=== PATIENT | female | born 1990 | race American Indian/Alaskan Native ===

== ENCOUNTER → 2017-09-18 | Outpatient (CLI) | payer MEDICAID | LOC: SLR 11:00 | PROVIDERS: ATTEND Otolaryngology | DX: G47.30 Sleep apnea, unspecified (principal) | CPT/HCPCS: 95810 ==

== ENCOUNTER → 2017-10-08 | Outpatient (CLI) | payer MEDICAID | LOC: SLR 11:00 | PROVIDERS: ATTEND Otolaryngology | DX: G47.33 Obstructive sleep apnea (adult) (pediatric) (principal) | CPT/HCPCS: 95811 ==

== ENCOUNTER 2018-09-30 09:23 | Emergency (ER) | payer MEDICAID, OTHER ==
[2018-09-30 09:31] VITALS: BP 141/89
[2018-09-30] MEDS ORDERED: DECADRON IM ONE (10:05)
--- NOTE | 2018-09-30 10:18 | Emergency Department Report ---
- General Chief Complaint: Upper Respiratory Infection Stated Complaint: SORE THROAT/ABD PAIN Time Seen by Provider: 09/30/18 10:00 Source: patient Mode of arrival: Ambulatory Limitations: No Limitations - History of Present Illness Initial Comments: Patient is a 28-year-old [place] female who is presenting with cough cold congestion type symptoms for the past several days woke up this morning with difficulty swallowing. Patient states cough is nonproductive has been present for approximately 4 days. Patient denies any fevers chills at this time. Patient states that she now has some difficulty swallowing and feels as though something is stuck in the back of her throat. There is mild pain with swallowing her saliva but she is able to swallow and keep down liquids. Patient states the pain as a 6 out of 10 in severity. - Related Data Previous Rx's Medication Instructions Recorded Last Taken Type Meloxicam 15 mg PO DAILY #7 tablet 06/18/18 Unknown Rx Methocarbamol [Robaxin TAB] 750 mg PO Q8H PRN #14 tablet 06/18/18 Unknown Rx ALBUTEROL Inhaler (OR & NICU) 2 puff IH QID PRN #1 inhalation 09/30/18 Unknown Rx [ProAir HFA Inhaler] Clindamycin [Clindamycin CAP] 300 mg PO Q8H 7 Days cap 09/30/18 Unknown Rx Allergies Allergy/AdvReac Type Severity Reaction Status Date / Time No Known Allergies Allergy Verified 09/30/18 09:26 ED Review of Systems ROS: Stated complaint: SORE THROAT/ABD PAIN Other details as noted in HPI Comment: All other systems reviewed and negative ED Past Medical Hx - Past Medical History Hx Hypertension: Yes Hx Diabetes: Yes (borderline) Hx Psychiatric Treatment: Yes (depression, bipolar) Additional medical history: morbid obesity, abnormal uterine bleeding - Surgical History Past Surgical History?: No - Social History Smoking Status: Never Smoker Substance Use Type: None - Medications Home Medications: Home Medications Medication Instructions Recorded Confirmed Last Taken Type Meloxicam 15 mg PO DAILY #7 tablet 06/18/18 Unknown Rx Methocarbamol [Robaxin TAB] 750 mg PO Q8H PRN #14 tablet 06/18/18 Unknown Rx ALBUTEROL Inhaler (OR & NICU) 2 puff IH QID PRN #1 inhalation 09/30/18 Unknown Rx [ProAir HFA Inhaler] Clindamycin [Clindamycin CAP] 300 mg PO Q8H 7 Days cap 09/30/18 Unknown Rx ED Physical Exam - General Limitations: No Limitations General appearance: alert, in no apparent distress - Head Head exam: Present: atraumatic, normocephalic - Eye Eye exam: Present: normal appearance - ENT ENT exam: Present: mucous membranes moist. Absent: normal orophraynx (patient's uvula is midline however there is evidence of some mild erythema and edema to the uvula) - Neck Neck exam: Present: normal inspection - Respiratory Respiratory exam: Present: normal lung sounds bilaterally. Absent: respiratory distress, wheezes, rales, rhonchi - Cardiovascular Cardiovascular Exam: Present: regular rate, normal rhythm. Absent: systolic murmur, diastolic murmur, rubs, gallop - GI/Abdominal GI/Abdominal exam: Present: soft, normal bowel sounds - Extremities Exam Extremities exam: Present: normal inspection - Back Exam Back exam: Present: normal inspection - Neurological Exam Neurological exam: Present: alert, oriented X3 - Psychiatric Psychiatric exam: Present: normal affect, normal mood - Skin Skin exam: Present: warm, dry, intact, normal color. Absent: rash ED Course Vital Signs 09/30/18 09:30 Temperature 98.7 F Pulse Rate 87 Respiratory 20 Rate Blood Pressure 141/89 O2 Sat by Pulse 99 Oximetry ED Medical Decision Making - Medical Decision Making Patient likely with a acute bronchitis with uvulitis as well. Patient be given minutes symptomatic relief and will be discharged home. Critical care attestation.: If time is entered above; I have spent that time in minutes in the direct care of this critically ill patient, excluding procedure time. ED Disposition Clinical Impression: Uvulitis Acute bronchitis Qualifiers: Bronchitis organism: unspecified organism Qualified Code(s): J20.9 - Acute bronchitis, unspecified Disposition: DC-01 TO HOME OR SELFCARE Is pt being admited?: No Does the pt Need Aspirin: No Condition: Stable Instructions: Acute Bronchitis (ED), Uvulitis (ED) Referrals: JULIA DUTTA MD [Primary Care Provider] - 3-5 Days Time of Disposition: 10:18
[2018-09-30 10:37] LABS: Bacteria,Urine 1+ /HPF (Negative); Bilirubin,Urine NEG (Negative); Blood,Urine LG (Negative); Color,Urine Red (Yellow); RBC,Urine > 182.0 /HPF (0.0-6.0); Urobilinogen,Urine < 2.0 mg/dL (<2.0)
[2018-09-30 10:38] LABS: HCG Qualitative,Urine Negative (Negative)
== END 2018-09-30 10:36 | disposition home or self-care (01) ==
LOC: ED 09:23
DX: J20.9 Acute bronchitis, unspecified (principal); K12.2 Cellulitis and abscess of mouth; I10 Essential (primary) hypertension; E11.9 Type 2 diabetes mellitus without complications; F31.9 Bipolar disorder, unspecified; E66.01 Morbid (severe) obesity due to excess calories; Z68.42 Body mass index [BMI] 45.0-49.9, adult
CPT/HCPCS: 81001; 81025; 96372; 99283; J1100

== ENCOUNTER 2018-11-25 07:40 | Day surgery (SDC) | payer MEDICAID ==
[~2018-11-25 07:40] MED LIST: NACL 0.9% 1000 ML 1,000 ML IV SCH
[2018-11-25] MEDS ORDERED: WATER FOR IRRIG STERILE IR ONE ×2 (07:41→10:06)
--- NOTE | 2018-11-25 09:49 | Anesthesia Day of Surgery ---
Anesthesia Day of Surgery - Day of Surgery Patient Examined: Yes Patient H&P Reviewed: Yes Patient is NPO: Yes Beta Blockers: No
--- NOTE | 2018-11-25 09:50 | Anesthesia Consultation ---
Anesthesia Consult and Med Hx Date of service: 11/25/18 - Airway Anesthetic Teeth Evaluation: Good ROM Head & Neck: Adequate Mental/Hyoid Distance: Adequate Mallampati Class: Class III Intubation Access Assessment: Good - Pulmonary Exam CTA: Yes - Cardiac Exam Cardiac Exam: No Murmur - Pre-Operative Health Status ASA Pre-Surgery Classification: ASA3 Proposed Anesthetic Plan: MAC - Pulmonary Hx Sleep Apnea: Yes - Cardiovascular System Hx Hypertension: Yes - Other Systems Hx Obesity: Yes
[2018-11-25] MEDS ORDERED: VERSED ONE (09:55)
[2018-11-25] MEDS ORDERED: DIPRIVAN 10 MG/ML IV ONE (09:55)
[2018-11-25 10:37] VITALS: BP 120/60
--- NOTE | 2018-11-25 13:28 | Operative Report ---
PREOPERATIVE DIAGNOSIS: Morbid obesity. POSTOPERATIVE DIAGNOSIS: Duodenitis. PROCEDURE: Esophagogastroduodenoscopy. ANESTHESIA: MAC. COMPLICATIONS: None. BLEEDING: None. SPECIMENS: None. INDICATIONS: The patient is a 28-year-old female with history of morbid obesity. She is here for preoperative EGD. Informed consent was obtained. DESCRIPTION OF PROCEDURE: The patient was brought to the GI suite where she was placed in the left lateral decubitus position and underwent MAC anesthesia. A bite block was placed and a timeout was called. A standard adult gastroscope was inserted into the oropharynx, down the esophagus, into the stomach. On retroflexion view, she was not noted to have any hiatal hernias present. On intubation of the pylorus into the first portion of the duodenum, I noted a minor amount of duodenitis. No other findings. The air is desufflated. The scope was removed. The patient tolerated the procedure without any immediate complications and was transferred to the PACU in stable condition. JOB# [id number] AP/LOLITA
== END 2018-11-25 07:41 | disposition home or self-care (01) ==
LOC: GIO 07:40
PROVIDERS: ATTEND Specialist
DX: K29.80 Duodenitis without bleeding (principal); K30 Functional dyspepsia; E11.9 Type 2 diabetes mellitus without complications; E66.01 Morbid (severe) obesity due to excess calories; K21.9 Gastro-esophageal reflux disease without esophagitis; M19.90 Unspecified osteoarthritis, unspecified site; F31.9 Bipolar disorder, unspecified; E78.00 Pure hypercholesterolemia, unspecified; I10 Essential (primary) hypertension; G47.30 Sleep apnea, unspecified; Z68.43 Body mass index [BMI] 50.0-59.9, adult; Z98.84 Bariatric surgery status; Z79.899 Other long term (current) drug therapy
CPT/HCPCS: 43235; 81025; 82962; J2250; J2704; J7030

== ENCOUNTER 2019-02-03 07:02 | Inpatient (IN) | payer MEDICAID, OTHER ==
--- NOTE | 2019-02-02 15:22 | Anesthesia Consultation ---
Anesthesia Consult and Med Hx Date of service: 02/02/19 - Airway Anesthetic Teeth Evaluation: Good ROM Head & Neck: Adequate Mental/Hyoid Distance: Adequate Mallampati Class: Class II Intubation Access Assessment: Probably Good - Pulmonary Exam CTA: Yes - Cardiac Exam Cardiac Exam: RRR - Pre-Operative Health Status ASA Pre-Surgery Classification: ASA3 Proposed Anesthetic Plan: General - Pulmonary Hx Smoking: No Hx Asthma: Yes (last inhaler use 2wks ago) Hx Respiratory Symptoms: No Hx Sleep Apnea: Yes (compliant with CPAP) - Cardiovascular System Hx Hypertension: Yes Hx Heart Attack/AMI: No Hx Percutaneous Transluminal Coronary Angioplasty (PTCA): No Hx Cardia Arrhythmia: No - Central Nervous System Hx Seizures: No CVA: No Hx Psychiatric Problems: Yes - Gastrointestinal Hx Gastroesophageal Reflux Disease: Yes (well controlled) - Endocrine Hx Renal Disease: No Hx Liver Disease: No Hx Insulin Dependent Diabetes: No Hx Non-Insulin Dependent Diabetes: No Hx Thyroid Disease: No - Hematic Hx Anemia: Yes - Other Systems Hx Cancer: No Hx Obesity: Yes (BMI 49) - Additional Comments Anesthesia Medical History Comments: No prior GA. No FHx anesthetic complications. Completed cardiac and medical eval prior to surgery. Patient states normal results. Documents requested.
[~2019-02-03 07:02] MED LIST changes: +ANCEF/STERILE WATER 2 GM/20 ML 2 GM/20 ML SYRINGE IV SCH; +FLAGYL 500 MG/100 ML 500 MG/100 ML BAG IV NR; -NACL 0.9% 1000 ML 1,000 ML IV SCH
--- NOTE | 2019-02-03 09:01 | Anesthesia Day of Surgery ---
Anesthesia Day of Surgery - Day of Surgery Patient Examined: Yes Patient H&P Reviewed: Yes Patient is NPO: Yes Cardiac Clearance: Yes
[2019-02-03] MEDS: LACTATED RINGERS 1,000 ML IV SCH ×2 (09:20→23:52)
[2019-02-03] MEDS: VERSED IV NR ×2 (09:23→09:58)
[2019-02-03] MEDS ORDERED: APRESOLINE IV PRN (09:40)
[2019-02-03] MEDS ORDERED: NORCO PO PRN (09:40)
[2019-02-03] MEDS ORDERED: TRANSDERM-SCOP TD SCH (10:00)
[2019-02-03] MEDS ORDERED: LOVENOX SUB-Q NR (10:00)
[2019-02-03] MEDS ORDERED: TORADOL IV SCH (10:00)
[2019-02-03] MEDS ORDERED: LACTATED RINGERS 1,000 ML IV SCH (10:00)
[2019-02-03] MEDS ORDERED: XYLOCAINE 1% 20 mL ONE (10:48)
[2019-02-03] MEDS ORDERED: MARCAINE-EPI 0.5%-1:200,000 INFILTRATI ONE ×2 (10:48→11:29)
[2019-02-03] MEDS ORDERED: BRIDION IV ONE (10:49)
[2019-02-03] MEDS ORDERED: XYLOCAINE 1% 20 mL INFILTRATI ONE (11:29)
[2019-02-03] MEDS ORDERED: NACL 0.9% IR ONE ×2 (11:29→11:33)
[2019-02-03] MEDS ORDERED: DIPRIVAN 10 MG/ML IV ONE (11:30)
[2019-02-03] MEDS ORDERED: ZEMURON IV ONE (11:30)
[2019-02-03] MEDS ORDERED: DECADRON ONE (11:30)
[2019-02-03] MEDS ORDERED: SUBLIMAZE ONE (11:30)
[2019-02-03] MEDS ORDERED: XYLOCAINE MPF 2% ONE (11:30)
[2019-02-03] MEDS ORDERED: DILAUDID ONE (11:30)
[2019-02-03] MEDS ORDERED: ZOFRAN ONE (11:30)
[2019-02-03] MEDS: SUBLIMAZE IV PRN ×2 (12:50→13:02)
[2019-02-03] MEDS: MYLICON PO PRN ×2 (13:01→20:34)
[2019-02-03] MEDS: REGLAN IV PRN (13:06)
[2019-02-03] MEDS: TORADOL IV SCH ×2 (13:35→20:47)
[2019-02-03] MEDS ORDERED: HumuLIN R SUB-Q ONE (13:57)
--- NOTE | 2019-02-03 15:01 | Post Anesthesia Evaluation ---
- Post Anesthesia Evaluation Patient Participated: Yes Airway Patent: Yes Stable Respiratory Function: Yes Nausea/Vomiting: No Temp > 96.8F: Yes Pain Manageable: Yes Adequeate Hydration: Yes Anesthesia Complications: No
[2019-02-03] MEDS: ZOFRAN IV PRN (16:05)
[2019-02-03] MEDS: DILAUDID IV PRN ×2 (16:05→20:35)
--- NOTE | 2019-02-03 17:47 | XRay Report ---
CHEST 1 VIEW 02/03/2019 5:27 PM INDICATION / CLINICAL INFORMATION: Chest pain. COMPARISON: None available. FINDINGS: SUPPORT DEVICES: None. HEART / MEDIASTINUM: No significant abnormality. LUNGS / PLEURA: Suboptimal inspiration resulting in low lung volumes. Mild bibasilar atelectasis. No pneumothorax. ADDITIONAL FINDINGS: No significant additional findings. IMPRESSION: 1. Mild bibasilar atelectasis. Signer Name: Espinoza Martinez MD Signed: 02/03/2019 5:43 PM Workstation Name: [id number]
[2019-02-04] MEDS: DILAUDID IV PRN ×3 (00:01→15:35)
[2019-02-04] MEDS: REGLAN IV PRN ×2 (00:02→16:10)
[2019-02-04 04:49] LABS: Hematocrit 34.8 % (30.3-42.9); Hemoglobin 10.9 gm/dl (10.1-14.3); Mean Corpuscular HGB Conc 31 % (30-34); Mean Corpuscular Volume 74 fl (79-97); Platelet Count 428 K/mm3 (140-440)
[2019-02-04 04:56] LABS: Red Cell Distribution Width 25.3 % (13.2-15.2)
[2019-02-04 05:09] LABS: Alanine Aminotransferase 26 units/L (7-56); Albumin 3.6 g/dL (3.9-5); BUN/Creatinine Ratio 10; Blood Urea Nitrogen 6 mg/dL (7-17); Hemolysis Index 20
[2019-02-04] MEDS: TORADOL IV SCH ×3 (05:13→16:10)
[2019-02-04] MEDS: ZOFRAN IV PRN (05:17)
[2019-02-04] MEDS: LACTATED RINGERS 1,000 ML IV SCH (07:25)
--- NOTE | 2019-02-04 08:21 | Discharge Summary ---
Providers - Providers Date of Admission: 02/03/19 08:05 Date of discharge: 02/04/19 Attending physician: MARI BARBOSA Primary care physician: JULIA DUTTA Hospitalization Reason for admission: postop care Condition: Good Procedures: 02/03/19: Laparoscopic sleeve gastrectomy Hospital course: 28F admitted after her operation for routine postop care. She was managed on the general surgical floor. She had no major issues, ambulated, clear liquid, pain controlled, and was dc POD1. Disposition: DC-01 TO HOME OR SELFCARE Core Measure Documentation - Palliative Care Palliative Care/ Comfort Measures: Not Applicable - Core Measures Any of the following diagnoses?: none - VTE Discharge Requirements Deep Vein Thrombosis/Pulmonary Embolism Present on Admission: No - Acute KS Discharge Requirements Aspirin at discharge: No Reason for no aspirin on DC: Surgical contraindication - Heart Failure Discharge Requirements AUTUMN/ARB for LVSD if EF <40%: Not Applicable - Stroke Discharge Requirements Statin for LDL = or >70 mg/dl on DC: Not Applicable Exam - Physical Exam Narrative exam: Gen: AAO, NAD Heart: RRR Lungs: CTAB Abd: MO, soft, NT, ND. Bandages c/d/i. Ext: No LE Edema - Constitutional Vitals: Temp Pulse Resp BP Pulse Ox 98.2 F 99 H 18 142/77 95 02/04/19 04:02 02/04/19 04:02 02/04/19 04:02 02/04/19 04:02 02/04/19 07:52 Plan Diet: clear liquids Wound: keep clean and dry, per your surgeon's advice Special Instructions: no heavy lifting Follow up with: JULIA DUTTA MD [Primary Care Provider] - 7 Days
[2019-02-04 09:24] LABS: Anisocytosis 2+; Basophils % (Manual) 0 % (0.0-1.8); Eosinophils % (Manual) 0 % (0.0-4.3); Hypochromasia 1+; Large Platelets Few; Total Cells Counted 100
[2019-02-04 09:25] LABS: Platelet Estimate Consistent w Auto
[2019-02-04] MEDS ORDERED: ZESTRIL PO SCH (10:00)
[2019-02-04] MEDS ORDERED: LOVENOX SUB-Q SCH (10:00)
[2019-02-04] MEDS: MYLICON PO PRN (11:56)
[2019-02-04 16:10] VITALS: BP 145/94
== END 2019-02-04 16:00 | disposition home or self-care (01) | DRG 621 ==
LOC: 3A 08:05 → 3B-SURG 13:25
PROVIDERS: ADMIT Specialist; ATTEND Specialist
PROC: 0DB64Z3 Excision of Stomach, Percutaneous Endoscopic Approach, Vertical (ICD-10-PCS; principal; 2019-02-03)
PROC: 0BQT4ZZ Repair Diaphragm, Percutaneous Endoscopic Approach (ICD-10-PCS; 2019-02-03)
DX: E66.01 Morbid (severe) obesity due to excess calories (principal); J45.909 Unspecified asthma, uncomplicated; I10 Essential (primary) hypertension; K21.9 Gastro-esophageal reflux disease without esophagitis; E11.9 Type 2 diabetes mellitus without complications; K44.9 Diaphragmatic hernia without obstruction or gangrene; Z68.42 Body mass index [BMI] 45.0-49.9, adult
CPT/HCPCS: 36415; 71045; 80053; 81025; 82962; 85007; 85025; 88307; 93005; 93010; 94760; G0378; A4217; J0360; J0690; J1100; J1170; J1650; J1815; J1885; J2250; J2405; J2704; J2765; J3010; J7120

== ENCOUNTER 2019-02-10 15:31 | Emergency (ER) | payer MEDICAID ==
--- NOTE | 2019-02-10 15:51 | Event Note ---
ED Screening Note Date of service: 02/10/19 Time: 15:47 ED Screening Note: This is a 28 y.o. F. that presents to the ER with dizziness, weakness, and palpitations since yesterday. Gastric sleeve surgery 02/03/19. PMH Obesity, DM This initial assessment/diagnostic orders/clinical plan/treatment(s) is/are subject to change based on patients health status, clinical progression and re- assessment by fellow clinical providers in the ED. Further treatment and workup at subsequent clinical providers discretion. Patient/guardian urged not to elope from the ED as their condition may be serious if not clinically assessed and managed. Initial orders include: Labs POC 98
[2019-02-10 16:32] LABS: Basophils # (Auto) 0.1 K/mm3 (0.0-0.1); Basophils % (Auto) 0.8 % (0.0-1.8); Eosinophils # (Auto) 0.1 K/mm3 (0.0-0.4); Eosinophils % (Auto) 1.5 % (0.0-4.3); Hematocrit 42.2 % (30.3-42.9); Hemoglobin 14.1 gm/dl (10.1-14.3); Lymphocytes # (Auto) 2.2 K/mm3 (1.2-5.4); Lymphocytes % (Auto) 26.9 % (13.4-35.0); Mean Corpuscular HGB Conc 34 % (30-34); Mean Corpuscular Volume 72 fl (79-97); Monocytes # (Auto) 0.9 K/mm3 (0.0-0.8); Monocytes % (Auto) 11.2 % (0.0-7.3); Platelet Count 456 K/mm3 (140-440); Red Blood Count 5.88 M/mm3 (3.65-5.03)
[2019-02-10 16:36] LABS: Red Cell Distribution Width 23.7 % (13.2-15.2)
[2019-02-10 17:19] LABS: BUN/Creatinine Ratio 18; Blood Urea Nitrogen 16 mg/dL (7-17); Calcium 9.7 mg/dL (8.4-10.2); Hemolysis Index 22
--- NOTE | 2019-02-10 17:59 | Emergency Department Report ---
<NEELAM MANDEL - Last Filed: 02/10/19 21:12> ED Shortness of Breath HPI - General Chief Complaint: Weakness Stated Complaint: GASTRIC SLEEVE COMPLICATIONS Time Seen by Provider: 02/10/19 15:47 - Related Data Home Medications Medication Instructions Recorded Confirmed Last Taken Lisinopril [Zestril TAB] 1 tab PO DAILY 11/25/18 01/30/19 11/24/18 Ferrous Fumarate (Nf) 1 tab PO DAILY 01/30/19 01/30/19 Unknown [Hemocyte(Nf)] Previous Rx's Medication Instructions Recorded Last Taken Type ALBUTEROL Inhaler (OR & NICU) 2 puff IH QID PRN #1 inhalation 09/30/18 11/12/18 Rx [ProAir HFA Inhaler] Ciprofloxacin [Ciprofloxacin ORAL 500 mg PO Q12H #70 ml 02/10/19 Unknown Rx LIQ] Allergies Allergy/AdvReac Type Severity Reaction Status Date / Time No Known Allergies Allergy Verified 01/30/19 17:01 ED Past Medical Hx - Medications Home Medications: Home Medications Medication Instructions Recorded Confirmed Last Taken Type ALBUTEROL Inhaler (OR & NICU) 2 puff IH QID PRN #1 inhalation 09/30/18 01/30/19 11/12/18 Rx [ProAir HFA Inhaler] Lisinopril [Zestril TAB] 1 tab PO DAILY 11/25/18 01/30/19 11/24/18 History Ferrous Fumarate (Nf) 1 tab PO DAILY 01/30/19 01/30/19 Unknown History [Hemocyte(Nf)] Ciprofloxacin [Ciprofloxacin ORAL 500 mg PO Q12H #70 ml 02/10/19 Unknown Rx LIQ] ED Medical Decision Making - Lab Data Result diagrams: 02/10/19 16:15 02/10/19 16:15 - Medical Decision Making 78-year-old female, signed out to me by my colleague Dr. Nguyen, patient presents to ED with 2 day history of shortness of breath, lightheadedness, palpitations, fatigue. Patient recently underwent gastric sleeve placement one week ago. Patient reports mild swelling and pain to bilateral lower extremities. Only PO intake is liquids due to gastric sleeve surgery. Patient states she is unsure if she is drinking enough. The patient reports nausea, no vomiting. Labs reviewed that is unremarkable except for slightly elevated d-dimer. Patient had CTA chest which is negative for pulmonary embolism. Patient stated that she is feeling much better. Patient be treated for UTI with liquid Levaquin and advised to follow-up with primary care physician in the next 2-3 days and to return to the ER if symptoms are not improved. ED Disposition Clinical Impression: Shortness of breath, UTI (urinary tract infection) Disposition: - TO HOME OR SELFCARE Is pt being admited?: No Condition: Stable Instructions: Urinary Tract Infection in Women (ED), Dyspnea (ED) Prescriptions: Ciprofloxacin [Ciprofloxacin ORAL LIQ] 500 mg PO Q12H #70 ml Referrals: [facility] [Provider Group] - 3-5 Days <VARUN NGUYEN - Last Filed: 02/13/19 07:29> ED Shortness of Breath HPI - General Source: patient Mode of arrival: Ambulatory Limitations: No Limitations - History of Present Illness Initial Comments: 78-year-old female presents to ED with 2 day history of shortness of breath, lightheadedness, palpitations, fatigue. Patient recently underwent gastric sleeve placement one week ago. Patient reports mild swelling and pain to apryl ateral lower extremities. Only PO intake is liquids due to gastric sleeve surgery. Patient states she is unsure if she is drinking enough. The patient reports nausea, no vomiting. MD Complaint: shortness of breath, cough, chest pain -: days(s) (2) Radiation: right arm Severity: moderate Quality: dull Consistency: intermittent Improves With: rest Worsens With: exertion Associated Symptoms: chest pain, cough, lower extremity pain, palpitations, nausea/vomiting - Related Data Home Oxygen Therapy: No ED Review of Systems ROS: Stated complaint: GASTRIC SLEEVE COMPLICATIONS Other details as noted in HPI Comment: All other systems reviewed and negative Constitutional: denies: chills, fever Respiratory: cough, shortness of breath Cardiovascular: chest pain, palpitations Gastrointestinal: nausea. denies: vomiting Musculoskeletal: other (reports lower extremity pain and swelling) ED Past Medical Hx - Past Medical History Hx Hypertension: Yes Hx Heart Attack/AMI: No Hx Diabetes: Yes (PT DENIES) Hx GERD: Yes Hx Liver Disease: No Hx Renal Disease: No Hx Arthritis: Yes Hx Headaches / Migraines: Yes (Migraines) Hx Seizures: No Hx Psychiatric Treatment: Yes (depression, bipolar) Hx Asthma: Yes (last inhaler use 2wks ago) Additional medical history: morbid obesity, abnormal uterine bleeding - Social History Smoking Status: Never Smoker Substance Use Type: None ED Physical Exam - General Limitations: No Limitations General appearance: alert, in no apparent distress, obese - Head Head exam: Present: atraumatic, normocephalic - Eye Eye exam: Present: normal appearance, PERRL, EOMI - ENT ENT exam: Present: mucous membranes moist - Neck Neck exam: Present: normal inspection - Respiratory Respiratory exam: Present: normal lung sounds bilaterally. Absent: respiratory distress - Cardiovascular Cardiovascular Exam: Present: regular rate, normal rhythm - GI/Abdominal GI/Abdominal exam: Present: soft, tenderness. Absent: distended - Extremities Exam Extremities exam: Present: normal inspection, calf tenderness (bilateral). Absent: pedal edema - Neurological Exam Neurological exam: Present: alert, oriented X3 - Psychiatric Psychiatric exam: Present: normal affect, normal mood - Skin Skin exam: Present: warm, dry, intact, normal color ED Course Vital Signs 02/10/19 02/10/19 02/10/19 15:47 17:30 18:34 Temperature 97.7 F 98.3 F Pulse Rate 118 H 96 H Respiratory 20 18 18 Rate Blood Pressure 144/90 Blood Pressure 116/65 [Right] O2 Sat by Pulse 98 100 Oximetry 02/10/19 02/10/19 02/10/19 21:18 21:41 22:11 Temperature 98 F Pulse Rate 89 Respiratory 17 16 16 Rate Blood Pressure Blood Pressure 136/76 [Right] O2 Sat by Pulse Oximetry ED Medical Decision Making - Lab Data Result diagrams: 02/10/19 16:15 02/10/19 16:15 - EKG Data -: EKG Interpreted by Nv EKG shows normal: sinus rhythm, axis, intervals, QRS complexes, ST-T waves Rate: normal - EKG Data Interpretation: other (T wave inversion in lead III) - Medical Decision Making 28-year-old female with shortness of breath, lightheadedness, palpitations, fatigue. Pt is orthostatic. Possibly dehydrated due to recent gastric sleeve surgery and decreased PO intake. D-dimer elevated, so CTA obtained. Pt signed out to Dr aMndel to follow-up on CTA results. - Differential Diagnosis PE, dehydration, pneumonia, pulm edema Critical care attestation.: If time is entered above; I have spent that time in minutes in the direct care of this critically ill patient, excluding procedure time.
[2019-02-10 18:45] LABS: INR 1.11 (0.87-1.13)
[2019-02-10 18:46] LABS: Partial Thromboplastin Time 28.8 Sec. (24.2-36.6)
[2019-02-10] MEDS ORDERED: NACL 0.9% 1000 ML 1,000 ML IV ONE (18:47)
[2019-02-10 19:09] LABS: Bacteria,Urine 1+ /HPF (Negative); Bilirubin,Urine NEG (Negative); Blood,Urine NEG (Negative); Color,Urine Amber (Yellow); Hyaline Casts,Urine 2 /LPF; Mucus,Urine 3+ /HPF
--- NOTE | 2019-02-10 20:25 | Cat Scan Report ---
CTA CHEST WITH IV CONTRAST INDICATION: Shortness of breath. TECHNIQUE: Axial CT images were obtained through the chest after injection of 100 cc of IV Omnipaque 350 IV cont rast. 3 plane MIP reconstructions were produced. All CT scans at this location are performed using CT dose reduction for ALARA by means of automated exposure control. COMPARISON: None available. FINDINGS: Pulmonary Arteries: No pulmonary emboli. Lungs: No significant abnormality. Trachea and Bronchi: No significant abnormality. Heart and Pericardium: No significant abnormality. Vasculature: No significant abnormality. Lymphatics: No lymphadenopathy. Additional Findings: None. Upper Abdomen: No acute findings. Skeletal Structures: No significant osseous abnormality. IMPRESSION: 1. No CT evidence for pulmonary embolism. 2. No acute findings. Signer Name: Tacos Dorsey MD Signed: 02/10/2019 8:21 PM Workstation Name: [id number]
--- NOTE | 2019-02-10 20:29 | XRay Report ---
CHEST 1 VIEW 02/10/2019 8:06 PM INDICATION / CLINICAL INFORMATION: Shortness of breath. COMPARISON: Chest x-ray dated 02/03/2019. FINDINGS: SUPPORT DEVICES: None. HEART / MEDIASTINUM: No significant abnormality. LUNGS / PLEURA: No significant pulmonary or pleural abnormality. No pneumothorax. ADDITIONAL FINDINGS: No significant additional findings. IMPRESSION: 1. No acute findings. Signer Name: Tacos Dorsey MD Signed: 02/10/2019 8:24 PM Workstation Name: [id number]
[2019-02-10 21:24] VITALS: BP 136/76
[2019-02-10] MEDS ORDERED: ZOFRAN ONE (21:35)
[2019-02-10] MEDS ORDERED: ZOFRAN IV ONE (21:35)
[2019-02-10] MEDS ORDERED: MORPHINE ONE (21:35)
[2019-02-10] MEDS ORDERED: MORPHINE IV ONE (21:35)
== END 2019-02-10 22:25 | disposition home or self-care (01) ==
LOC: ED 15:31
DX: N39.0 Urinary tract infection, site not specified (principal); R06.02 Shortness of breath; R11.2 Nausea with vomiting, unspecified
CPT/HCPCS: 36415; 71045; 71275; 80048; 81001; 82962; 83880; 84484; 84703; 85025; 85379; 85610; 85730; 87086; 93005; 93010; 96361; 96374; 96375; 99285; J2270; J2405; J7030; Q9967; 99284

== ENCOUNTER 2019-02-13 18:34 | Emergency (ER) | payer MEDICAID ==
--- NOTE | 2019-02-13 19:11 | Event Note ---
ED Screening Note Date of service: 02/13/19 Time: 19:10 ED Screening Note: This is a 28 y.o. F. that presents to the ER with headache and generalized pain. Patient seen in this ER 3 days ago and diagnosed with a UTI. Patient states she was unable to fill prescription and she is feeling worse. PMH morbidly obese, HTN, bipolar depression. Recent gastric sleeve surgery. This initial assessment/diagnostic orders/clinical plan/treatment(s) is/are subject to change based on patients health status, clinical progression and re- assessment by fellow clinical providers in the ED. Further treatment and workup at subsequent clinical providers discretion. Patient/guardian urged not to elope from the ED as their condition may be serious if not clinically assessed and managed. Initial orders include: labs
[2019-02-13 19:42] LABS: Hematocrit 40.8 % (30.3-42.9); Hemoglobin 13.2 gm/dl (10.1-14.3); Mean Corpuscular HGB Conc 32 % (30-34); Mean Corpuscular Volume 73 fl (79-97); Platelet Count 446 K/mm3 (140-440); Red Blood Count 5.63 M/mm3 (3.65-5.03)
[2019-02-13 19:43] LABS: Red Cell Distribution Width 23.5 % (13.2-15.2)
[2019-02-13 19:54] LABS: BUN/Creatinine Ratio 14; Blood Urea Nitrogen 11 mg/dL (7-17); Calcium 9.4 mg/dL (8.4-10.2); Hemolysis Index 5
[2019-02-13] MEDS ORDERED: NACL 0.9% 1000 ML 1,000 ML IV ONE (20:11)
[2019-02-13] MEDS ORDERED: ZOFRAN IV ONE (20:11)
[2019-02-13] MEDS ORDERED: MORPHINE IV ONE (20:11)
[2019-02-13] MEDS ORDERED: ROCEPHIN/NS 1 GM/50 ML 1 GM/50 ML BAG IV ONE (20:12)
[2019-02-13 20:17] LABS: Bacteria,Urine 3+ /HPF (Negative); Bilirubin,Urine NEG (Negative); Blood,Urine NEG (Negative); Color,Urine Amber (Yellow); Mucus,Urine 3+ /HPF
--- NOTE | 2019-02-13 20:19 | Emergency Department Report ---
ED Abdominal Pain HPI - General Chief Complaint: Back Pain/Injury Stated Complaint: BACK PAIN/FATIGUE/NAUSEA Time Seen by Provider: 02/13/19 19:10 Source: patient Mode of arrival: Ambulatory Limitations: No Limitations - History of Present Illness Initial Comments: Patient is 28 years old female with history of recent gastric sleeve surgery. Physician presented to the ER complaining of back pain. Patient was seen here 3 days ago diagnosed with UTI she was given a liquid to ciprofloxacin but stated that she is unable to fill the prescription. Patient currently denying any fever or chills. No nausea or vomiting. Patient stated that she still has symptoms is getting worse. Patient denied any other complaint. MD Complaint: abdominal pain, flank pain Location: diffuse Migration to: no migration - Related Data Home Medications Medication Instructions Recorded Confirmed Last Taken Lisinopril [Zestril TAB] 1 tab PO DAILY 11/25/18 01/30/19 11/24/18 Ferrous Fumarate (Nf) 1 tab PO DAILY 01/30/19 01/30/19 Unknown [Hemocyte(Nf)] Previous Rx's Medication Instructions Recorded Last Taken Type ALBUTEROL Inhaler (OR & NICU) 2 puff IH QID PRN #1 inhalation 09/30/18 11/12/18 Rx [ProAir HFA Inhaler] Ciprofloxacin [Ciprofloxacin ORAL 500 mg PO Q12H #70 ml 02/10/19 Unknown Rx LIQ] Ciprofloxacin HCl [Ciprofloxacin 500 mg PO Q12HR #14 tab 02/13/19 Unknown Rx TAB] Allergies Allergy/AdvReac Type Severity Reaction Status Date / Time No Known Allergies Allergy Verified 01/30/19 17:01 ED Review of Systems ROS: Stated complaint: BACK PAIN/FATIGUE/NAUSEA Other details as noted in HPI Comment: All other systems reviewed and negative Constitutional: denies: chills, fever Cardiovascular: denies: chest pain Gastrointestinal: abdominal pain Genitourinary: frequency Musculoskeletal: back pain Neurological: denies: headache, weakness ED Past Medical Hx - Past Medical History Previous Medical History?: Yes Hx Hypertension: Yes Hx Heart Attack/AMI: No Hx Diabetes: (PT DENIES) Hx GERD: Yes Hx Liver Disease: No Hx Renal Disease: No Hx Arthritis: Yes Hx Headaches / Migraines: Yes (Migraines) Hx Seizures: No Hx Psychiatric Treatment: Yes (depression, bipolar) Hx Asthma: Yes (last inhaler use 2wks ago) Additional medical history: morbid obesity, abnormal uterine bleeding - Surgical History Past Surgical History?: Yes Additional Surgical History: gastric sleeve - Social History Smoking Status: Never Smoker Substance Use Type: None - Medications Home Medications: Home Medications Medication Instructions Recorded Confirmed Last Taken Type ALBUTEROL Inhaler (OR & NICU) 2 puff IH QID PRN #1 inhalation 09/30/18 01/30/19 11/12/18 Rx [ProAir HFA Inhaler] Lisinopril [Zestril TAB] 1 tab PO DAILY 11/25/18 01/30/19 11/24/18 History Ferrous Fumarate (Nf) 1 tab PO DAILY 01/30/19 01/30/19 Unknown History [Hemocyte(Nf)] Ciprofloxacin [Ciprofloxacin ORAL 500 mg PO Q12H #70 ml 02/10/19 Unknown Rx LIQ] Ciprofloxacin HCl [Ciprofloxacin 500 mg PO Q12HR #14 tab 02/13/19 Unknown Rx TAB] ED Physical Exam - General Limitations: No Limitations General appearance: alert, in no apparent distress - Head Head exam: Present: atraumatic, normocephalic, normal inspection - Eye Eye exam: Present: normal appearance - ENT ENT exam: Present: normal exam, normal orophraynx, mucous membranes moist - Neck Neck exam: Present: normal inspection, full ROM. Absent: tenderness, meningismus, lymphadenopathy, thyromegaly - Respiratory Respiratory exam: Present: normal lung sounds bilaterally - Cardiovascular Cardiovascular Exam: Present: regular rate, normal rhythm, normal heart sounds - GI/Abdominal GI/Abdominal exam: Present: soft, normal bowel sounds. Absent: distended, tenderness, guarding, rebound, rigid, organomegaly, mass, bruit, pulsatile mass, hernia - Extremities Exam Extremities exam: Present: normal inspection, full ROM, normal capillary refill - Back Exam Back exam: Present: normal inspection, full ROM. Absent: CVA tenderness (R), CVA tenderness (L), muscle spasm, paraspinal tenderness, vertebral tenderness - Neurological Exam Neurological exam: Present: alert, oriented X3, CN II-XII intact, normal gait, reflexes normal - Psychiatric Psychiatric exam: Present: normal mood - Skin Skin exam: Present: warm, intact, normal color ED Course Vital Signs 02/13/19 02/13/19 02/13/19 19:10 20:06 20:31 Temperature 98.3 F Pulse Rate 103 H Respiratory 18 Rate Blood Pressure 130/81 146/88 O2 Sat by Pulse 99 99 99 Oximetry 02/13/19 02/13/19 02/13/19 21:00 22:01 22:30 Temperature Pulse Rate Respiratory 16 Rate Blood Pressure 121/58 138/81 O2 Sat by Pulse 98 100 Oximetry 02/13/19 22:37 Temperature 98.6 F Pulse Rate Respiratory Rate Blood Pressure O2 Sat by Pulse Oximetry ED Medical Decision Making - Lab Data Result diagrams: 02/13/19 19:30 02/13/19 19:30 - Radiology Data Radiology results: report reviewed - Medical Decision Making Patient is 28 years old female with history of recent gastric sleeve surgery. Physician presented to the ER complaining of back pain. Patient was seen here 3 days ago diagnosed with UTI she was given a liquid to ciprofloxacin but stated that she is unable to fill the prescription. Patient currently denying any fever or chills. No nausea or vomiting. Patient stated that she still has symptoms is getting worse. Patient denied any other complaint. Patient received morphine, Zofran, normal saline and 1 g of Rocephin. Patient stated that she is feeling better. CT abdomen and pelvis is unremarkable. Patient advised to get the ciprofloxacin tablets and crushed it if she can't get the liquid form and patient advised to follow-up with her primary care physician in the next 2-3 days and to return to the ER if symptoms are not improved. Critical care attestation.: If time is entered above; I have spent that time in minutes in the direct care of this critically ill patient, excluding procedure time. ED Disposition Clinical Impression: UTI (urinary tract infection), Abdominal pain Disposition: - TO HOME OR SELFCARE Is pt being admited?: No Condition: Stable Instructions: Post Op Bariatric Surgery, Urinary Tract Infection in Women (ED), Abdominal Pain (ED) Prescriptions: Ciprofloxacin HCl [Ciprofloxacin TAB] 500 mg PO Q12HR #14 tab Referrals: MERARI BASS MD [Primary Care Provider] - 3-5 Days
--- NOTE | 2019-02-13 21:59 | Cat Scan Report ---
CT ABDOMEN AND PELVIS WITHOUT CONTRAST INDICATION / CLINICAL INFORMATION: MAIN: Gastric sleeve on 02-03. Started having sharp back pain and pain and tenderness when eating on 02-10 CKW. TECHNIQUE: Axial CT images were obtained through the abdomen and pelvis without IV contrast. All CT scans at is location are performed using CT dose reduction for ALARA by means of automated exposure control. COMPARISON: None available. FINDINGS: LOWER CHEST: No significant abnormality. LIVER: No significant abnormality. GALLBLADDER: No significant abnormality. BILE DUCTS: No significant abnormality. PANCREAS: No significant abnormality. SPLEEN: No significant abnormality. ADRENALS: No significant abnormality. RIGHT KIDNEY and URETER: No significant abnormality. LEFT KIDNEY and URETER: No significant abnormality. STOMACH and SMALL BOWEL: Surgical changes present involving the upper abdomen-stomach. No significant abnormality. COLON: No significant abnormality. APPENDIX: No significant abnormality. PERITONEUM: No free fluid. No free air. No fluid collection. LYMPH NODES: No significant adenopathy. AORTA and ARTERIES: No significant abnormality. IVC and VEINS: No significant abnormality. URINARY BLADDER: No significant abnormality. REPRODUCTIVE ORGANS: No significant abnormality. ADDITIONAL FINDINGS: None. SKELETAL SYSTEM: No significant abnormality. IMPRESSION: 1. No significant abnormality. Signer Name: Robe Nelson MD Signed: 02/13/2019 9:54 PM Workstation Name: [id number]
[2019-02-13 22:37] VITALS: BP 138/81
== END 2019-02-13 22:39 | disposition home or self-care (01) ==
LOC: ED 18:34
DX: N39.0 Urinary tract infection, site not specified (principal); I10 Essential (primary) hypertension; M19.90 Unspecified osteoarthritis, unspecified site; G43.909 Migraine, unspecified, not intractable, without status migrainosus; F31.9 Bipolar disorder, unspecified; J45.909 Unspecified asthma, uncomplicated; E66.01 Morbid (severe) obesity due to excess calories; Z68.42 Body mass index [BMI] 45.0-49.9, adult; Z98.84 Bariatric surgery status; Z79.899 Other long term (current) drug therapy
CPT/HCPCS: 36415; 74176; 80048; 81001; 85027; 87086; 96365; 96375; 99284; J0696; J2270; J2405; J7030

== ENCOUNTER 2020-01-29 19:28 | Emergency (ER) | payer SELFPAY ==
[2020-01-29 19:53] VITALS: BP 151/96
[2020-01-29 23:52] LABS: HCG Qualitative,Urine Negative (Negative)
[2020-01-30] MEDS ORDERED: ONDANSETRON 4 MG/2 ML INJ IV ONE (00:17)
[2020-01-30] MEDS ORDERED: KETOROLAC 30 MG/1 ML INJ IV ONE (00:17)
[2020-01-30] MEDS ORDERED: FAMOTIDINE 20 MG/2 ML INJ IV ONE (00:17)
[2020-01-30 00:52] LABS: Basophils % (Auto) 0.5 % (0.0-1.8); Eosinophils % (Auto) 0.4 % (0.0-4.3); Hemoglobin 12.6 gm/dl (10.1-14.3); Lymphocytes # (Auto) 2.1 K/mm3 (1.2-5.4); Lymphocytes % (Auto) 36.3 % (13.4-35.0); Mean Corpuscular HGB Conc 32 % (30-34); Mean Corpuscular Volume 82 fl (79-97); Monocytes # (Auto) 0.6 K/mm3 (0.0-0.8); Monocytes % (Auto) 9.9 % (0.0-7.3); Platelet Count 289 K/mm3 (140-440); Red Blood Count 4.86 M/mm3 (3.65-5.03); Red Cell Distribution Width 16.5 % (13.2-15.2)
--- NOTE | 2020-01-30 00:52 | XRay Report ---
CHEST 2 VIEWS INDICATION / CLINICAL INFORMATION: chestpain. COMPARISON: 02/10/2019 FINDINGS: SUPPORT DEVICES: None. HEART / MEDIASTINUM: No significant abnormality. LUNGS / PLEURA: No significant pulmonary or pleural abnormality. No pneumothorax. ADDITIONAL FINDINGS: No significant additional findings. IMPRESSION: 1. No acute findings. Signer Name: Santiago Mckeon MD Signed: 01/30/2020 12:47 AM Workstation Name: [id number]
[2020-01-30 01:09] LABS: Alanine Aminotransferase 9 units/L (7-56); Albumin 3.9 g/dL (3.9-5); BUN/Creatinine Ratio 13; Blood Urea Nitrogen 9 mg/dL (7-17); Calcium 9.1 mg/dL (8.4-10.2); Hemolysis Index 3
[2020-01-30] MEDS ORDERED: KETOROLAC 30 MG/1 ML INJ IM ONE (03:15)
[2020-01-30] MEDS ORDERED: FAMOTIDINE 20 MG TAB PO ONE (03:15)
[2020-01-30] MEDS ORDERED: FAMOTIDINE 20 MG TAB ONE (03:15)
[2020-01-30] MEDS ORDERED: ONDANSETRON 4 MG ODT TAB ONE (03:17)
[2020-01-30] MEDS ORDERED: ONDANSETRON 4 MG ODT TAB PO ONE (03:20)
--- NOTE | 2020-01-30 03:25 | Emergency Department Report ---
ED General Adult HPI - General Chief complaint: Chest Pain Stated complaint: HIGH BLOOD PRESSURE,CHEST TIGHTENING Source: patient Mode of arrival: Ambulatory Limitations: No Limitations - History of Present Illness Initial comments: Patient is a nulliparous 29-year-old -[place] female with a history of hypertension, GERD, migraine headaches, chronic osteoarthritis, asthma, anxiety and depression, and bipolar disorder who presents to the ED with complaint of acute onset persistent frontal sinus pressure and headache, nasal and sinus congestion, and mild dry cough for the last 1 week. Patient also complains of chest tightness, elevated blood pressure persistently and diffuse abdominal pain with low back pain and nausea for the last 5 days. Patient states that her symptoms got worse in the last 12 hours such that her blood pressure was elevated while at home and also at work when she went to work. Patient also states that she felt lightheaded with chest tightness when her blood pressure was high. Patient states that she does not take her blood pressure medication having not taken the medicine for over 1 year after she had a gastric sleeve surgery. Patient denies dizziness, change in vision, syncope, palpitations, syncope, vomiting, diarrhea, sore throat, fever, chills, dysuria, urinary frequency and urgency, vaginal bleeding or vaginal discharge. MD Complaint: Abdominal pain, frontal headache, low back pain, chest tightness and HTN -: Sudden, week(s) (1) Location: head, chest, back, abdomen Radiation: non-radiation Severity scale (0 -10): 7 Quality: aching, sharp Consistency: constant Improves with: none Worsens with: none Associated Symptoms: denies other symptoms, chest pain, headaches, loss of appetite, malaise. denies: confusion, cough, diaphoresis, fever/chills, nausea/vomiting, rash, seizure, shortness of breath, syncope, weakness, other Treatments Prior to Arrival: none - Related Data Home Medications Medication Instructions Recorded Confirmed Last Taken lisinopriL [Zestril TAB] 1 tab PO DAILY 11/25/18 01/30/19 11/24/18 Ferrous Fumarate (Nf) 1 tab PO DAILY 01/30/19 01/30/19 Unknown [Hemocyte(Nf)] Previous Rx's Medication Instructions Recorded Last Taken Type Albuterol Mdi (or & Nicu Only) 2 puff IH QID PRN #1 inhalation 09/30/18 11/12/18 Rx [ProAir HFA Inhaler] Ciprofloxacin [Ciprofloxacin ORAL 500 mg PO Q12H #70 ml 02/10/19 Unknown Rx LIQ] Ciprofloxacin HCl [Ciprofloxacin 500 mg PO Q12HR #14 tab 02/13/19 Unknown Rx TAB] Butalb/Acetamin/Caff 50-325-40 1 - 2 tab PO Q6HR PRN #15 tab 01/30/20 Unknown Rx [Fioricet 50-325-40] Fluconazole (Nf) [Diflucan TAB] 150 mg PO ONCE #1 tablet 01/30/20 Unknown Rx Ibuprofen [Motrin] 600 mg PO Q8H PRN #24 tablet 01/30/20 Unknown Rx Lisinopril/Hydrochlorothiazide 1 tab PO QDAY #30 tab 01/30/20 Unknown Rx [Zestoretic 20-12.5 mg] Ondansetron [Zofran Odt] 4 mg PO Q6HR PRN #15 tab.rapdis 01/30/20 Unknown Rx cephALEXin [Keflex] 500 mg PO Q6HR #40 capsule 01/30/20 Unknown Rx Allergies Allergy/AdvReac Type Severity Reaction Status Date / Time No Known Allergies Allergy Verified 01/30/19 17:01 ED Review of Systems ROS: Stated complaint: HIGH BLOOD PRESSURE,CHEST TIGHTENING Other details as noted in HPI Constitutional: denies: chills, fever Eyes: denies: eye pain, eye discharge, vision change ENT: congestion, other (Frontal sinus pressure and headache). denies: ear pain, throat pain Respiratory: denies: cough, shortness of breath, wheezing Cardiovascular: chest pain (Chest tightness). denies: palpitations Endocrine: no symptoms reported Gastrointestinal: abdominal pain, nausea. denies: vomiting, diarrhea, constipation, hematemesis Genitourinary: denies: urgency, dysuria, frequency, hematuria, discharge, abnormal menses Musculoskeletal: back pain (Low back pain). denies: joint swelling, arthralgia Skin: denies: rash, lesions Neurological: headache (Frontal sinus pressure and headache). denies: weakness, paresthesias Psychiatric: denies: anxiety, depression Hematological/Lymphatic: denies: easy bleeding, easy bruising ED Past Medical Hx - Past Medical History Previous Medical History?: Yes Hx Hypertension: Yes Hx Heart Attack/AMI: No Hx Diabetes: (PT DENIES) Hx GERD: Yes Hx Liver Disease: No Hx Renal Disease: No Hx Arthritis: Yes Hx Headaches / Migraines: Yes (Migraines) Hx Seizures: No Hx Psychiatric Treatment: Yes (depression, bipolar) Hx Asthma: Yes Additional medical history: morbid obesity, abnormal uterine bleeding - Surgical History Past Surgical History?: Yes Additional Surgical History: gastric sleeve - Social History Smoking Status: Never Smoker Substance Use Type: None - Medications Home Medications: Home Medications Medication Instructions Recorded Confirmed Last Taken Type Albuterol Mdi (or & Nicu Only) 2 puff IH QID PRN #1 inhalation 09/30/18 01/30/19 11/12/18 Rx [ProAir HFA Inhaler] lisinopriL [Zestril TAB] 1 tab PO DAILY 11/25/18 01/30/19 11/24/18 History Ferrous Fumarate (Nf) 1 tab PO DAILY 01/30/19 01/30/19 Unknown History [Hemocyte(Nf)] Ciprofloxacin [Ciprofloxacin ORAL 500 mg PO Q12H #70 ml 02/10/19 Unknown Rx LIQ] Ciprofloxacin HCl [Ciprofloxacin 500 mg PO Q12HR #14 tab 02/13/19 Unknown Rx TAB] Butalb/Acetamin/Caff 50-325-40 1 - 2 tab PO Q6HR PRN #15 tab 01/30/20 Unknown Rx [Fioricet 50-325-40] Fluconazole (Nf) [Diflucan TAB] 150 mg PO ONCE #1 tablet 01/30/20 Unknown Rx Ibuprofen [Motrin] 600 mg PO Q8H PRN #24 tablet 01/30/20 Unknown Rx Lisinopril/Hydrochlorothiazide 1 tab PO QDAY #30 tab 01/30/20 Unknown Rx [Zestoretic 20-12.5 mg] Ondansetron [Zofran Odt] 4 mg PO Q6HR PRN #15 tab.rapdis 01/30/20 Unknown Rx cephALEXin [Keflex] 500 mg PO Q6HR #40 capsule 01/30/20 Unknown Rx ED Physical Exam - General Limitations: No Limitations General appearance: alert, in no apparent distress - Head Head exam: Present: atraumatic, normocephalic, normal inspection - Eye Eye exam: Present: normal appearance, PERRL, EOMI Pupils: Present: normal accommodation - ENT ENT exam: Present: normal orophraynx, mucous membranes moist, TM's normal bilaterally, normal external ear exam, other (Palpable frontal and maxillary sinus tenderness, grossly congested nasal passages) - Neck Neck exam: Present: normal inspection - Respiratory Respiratory exam: Present: normal lung sounds bilaterally. Absent: respiratory distress, wheezes, rales, rhonchi, chest wall tenderness, accessory muscle use, decreased breath sounds - Cardiovascular Cardiovascular Exam: Present: regular rate, normal rhythm, normal heart sounds. Absent: systolic murmur, diastolic murmur, rubs, gallop - GI/Abdominal GI/Abdominal exam: Present: soft, tenderness (Palpable mild diffuse lower abdominal tenderness), normal bowel sounds. Absent: guarding, rebound, hyperactive bowel sounds, hypoactive bowel sounds, organomegaly - Extremities Exam Extremities exam: Present: normal inspection, full ROM, normal capillary refill - Back Exam Back exam: Present: normal inspection, full ROM. Absent: tenderness, CVA tenderness (R), muscle spasm, paraspinal tenderness, vertebral tenderness - Neurological Exam Neurological exam: Present: alert, oriented X3, CN II-XII intact, normal gait, reflexes normal - Psychiatric Psychiatric exam: Present: normal affect, normal mood - Skin Skin exam: Present: warm, dry, intact, normal color. Absent: rash ED Course Vital Signs 01/29/20 19:51 Temperature 98.4 F Pulse Rate 80 Respiratory 18 Rate Blood Pressure 151/96 O2 Sat by Pulse 99 Oximetry ED Medical Decision Making - Lab Data Result diagrams: 01/30/20 00:30 01/30/20 00:30 - Radiology Data Radiology results: report reviewed, image reviewed Findings [address] [address] XRay Report Signed Patient: MARIEL WILEY MR#: [id number] : 1990 Acct:[id number] Age/Sex: 29 / F ADM Date: 01/29/20 Loc: ED Attending Dr: Ordering Physician: CHRISSIE ORTIZ III, MD Date of Service: 01/29/20 Procedure(s): XR chest routine 2V Accession Number(s): [id number] cc: CHRISSIE ORTIZ III, MD Fluoro Time In Minutes: CHEST 2 VIEWS INDICATION / CLINICAL INFORMATION: chestpain. COMPARISON: 02/10/2019 FINDINGS: SUPPORT DEVICES: None. HEART / MEDIASTINUM: No significant abnormality. LUNGS / PLEURA: No significant pulmonary or pleural abnormality. No pneumothorax. ADDITIONAL FINDINGS: No significant additional findings. IMPRESSION: 1. No acute findings. Signer Name: Santiago Mckeon MD Signed: 01/30/2020 12:47 AM Workstation Name: [id number] Transcribed By: TL Dictated By: Santiago Mckeon MD Electronically Authenticated By: Santiago Mckeon MD Signed Date/Time: 01/30/2046 DD/ TD/TT: -------- Findings [facility] [address] [place] [address] Cat Scan Report Signed Patient: MARIEL WILEY MR#: [id number] : 1990 Acct:[id number] Age/Sex: 28 / F ADM Date: 02/13/19 Loc: ED Attending Dr: Ordering Physician: NEELAM MANDEL Date of Service: 02/13/19 Procedure(s): CT abdomen pelvis wo con Accession Number(s): [id number] cc: NEELAM MANDEL CT ABDOMEN AND PELVIS WITHOUT CONTRAST INDICATION / CLINICAL INFORMATION: MAIN: Gastric sleeve on 02-03. Started having sharp back pain and pain and tenderness when eating on 02-10 CKW. TECHNIQUE: Axial CT images were obtained through the abdomen and pelvis without IV contrast. All CT scans at this location are performed using CT dose reduction for ALARA by means of automated exposure control. COMPARISON: None available. FINDINGS: LOWER CHEST: No significant abnormality. LIVER: No significant abnormality. GALLBLADDER: No significant abnormality. BILE DUCTS: No significant abnormality. PANCREAS: No significant abnormality. SPLEEN: No significant abnormality. ADRENALS: No significant abnormality. RIGHT KIDNEY and URETER: No significant abnormality. LEFT KIDNEY and URETER: No significant abnormality. STOMACH and SMALL BOWEL: Surgical changes present involving the upper abdomen- stomach. No significant abnormality. COLON: No significant abnormality. APPENDIX: No significant abnormality. PERITONEUM: No free fluid. No free air. No fluid collection. LYMPH NODES: No significant adenopathy. AORTA and ARTERIES: No significant abnormality. IVC and VEINS: No significant abnormality. URINARY BLADDER: No significant abnormality. REPRODUCTIVE ORGANS: No significant abnormality. ADDITIONAL FINDINGS: None. SKELETAL SYSTEM: No significant abnormality. IMPRESSION: 1. No significant abnormality. Signer Name: Robe Nelson MD Signed: 02/13/2019 9:54 PM Workstation Name: [id number] Transcribed By: SURINDER Dictated By: Robe Nelson MD Electronically Authenticated By: Robe Nelson MD Signed Date/Time: 02/13/192153 DD/ 49 TD/TT: - Medical Decision Making This is a nulliparous 29-year-old -[place] female with a history of hypertension, GERD, migraine headaches, chronic osteoarthritis, asthma, anxiety and depression, and bipolar disorder who presents to the ED with complaint of acute onset persistent frontal sinus pressure and headache, nasal and sinus congestion, and mild dry cough for the last 1 week. Patient also complains of chest tightness, elevated blood pressure persistently and diffuse abdominal pain with low back pain and nausea for the last 5 days. Patient states that her symptoms got worse in the last 12 hours such that her blood pressure was elevated while at home and also at work when she went to work. Patient also states that she felt lightheaded with chest tightness when her blood pressure was high. Patient states that she does not take her blood pressure medication having not taken the medicine for over 1 year after she had a gastric sleeve surgery. In the ED, patient is alert and oriented x3 and is not in distress. Patient was treated for pain, and also given antacids and antiemetics. Lab test results were reviewed and are all nonactionable. Chest x-ray shows no acute cardiopulmonary abnormalities or pneumonitis. The abdomen pelvis CT scan without contrast showed no acute abnormalities. Lab test results were reviewed and are all nonactionable except for urinalysis that showed acute urinary tract infection. Patient was therefore initially treated in the ED with Rocephin 1 g intramuscular injection. On reevaluation, patient's pain is well controlled with medications. 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 - Differential Diagnosis Sinusitis; URI; Anxiety; UTI; Bronchitis; Pneumonia; CAD; Critical care attestation.: If time is entered above; I have spent that time in minutes in the direct care o f this critically ill patient, excluding procedure time. ED Disposition Clinical Impression: Acute upper respiratory infection, Spasm of muscle of lower back, Acute urinary tract infection Abdominal pain Qualifiers: Abdominal location: lower abdomen, unspecified Qualified Code(s): R10.30 - Lower abdominal pain, unspecified Acute frontal sinusitis Qualifiers: Recurrence: non-recurrent Qualified Code(s): J01.10 - Acute frontal sinusitis, unspecified Disposition: TO HOME OR SELFCARE Is pt being admited?: No Does the pt Need Aspirin: No Condition: Stable Instructions: Acute Bacterial Rhinosinusitis (ED), Acute Abdominal Pain (ED), Acute Low Back Pain (ED), Muscle Spasm (ED), Urinary Tract Infection in Women (ED) Additional Instructions: Take medication with food, drink plenty of fluids and follow-up with your primary care physician in 7 to 10 days for reevaluation. Return to the ED immediately if symptoms get worse. Prescriptions: Fluconazole (Nf) [Diflucan TAB] 150 mg PO ONCE #1 tablet Butalb/Acetamin/Caff 50-325-40 [Fioricet 50-325-40] 1 - 2 tab PO Q6HR PRN #15 tab PRN Reason: Headache cephALEXin [Keflex] 500 mg PO Q6HR #40 capsule Ibuprofen [Motrin] 600 mg PO Q8H PRN #24 tablet PRN Reason: Pain Lisinopril/Hydrochlorothiazide [Zestoretic 20-12.5 mg] 1 tab PO QDAY #30 tab Ondansetron [Zofran Odt] 4 mg PO Q6HR PRN #15 tab.rapdis PRN Reason: Nausea Referrals: [facility] [Provider Group] - 7-10 days Forms: Work/School Release Form(ED) Time of Disposition: 03:36 Print Language: DIVEHI
--- NOTE | 2020-01-30 03:30 | Cat Scan Report ---
CT ABDOMEN AND PELVIS WITHOUT CONTRAST INDICATION: abdominal pain, PT STS GASTRIC SLEEVE SX X 2-4 YEARS AGO CURRENTLY C/O LT TO MID LOWER ABD PAIN, PT S TS PAIN HAS GOTTEN INCREASINGLY WORSE OVER LAST 7 DAYS. TECHNIQUE: Axial CT images were obtained through the abdomen and pelvis without IV contrast. All CT scans at is location are performed using CT dose reduction for ALARA by means of automated exposure control. COMPARISON: CT abdomen and pelvis 02/13/2019 FINDINGS: LOWER CHEST: No significant abnormality. LIVER: No significant abnormality. GALLBLADDER: No significant abnormality. BILE DUCTS: No significant abnormality. PANCREAS: No significant abnormality. SPLEEN: No significant abnormality. ADRENALS: No significant abnormality. RIGHT KIDNEY and URETER: No significant abnormality. LEFT KIDNEY and URETER: No significant abnormality. STOMACH and SMALL BOWEL: Gastric sleeve bypass again noted. COLON: Moderate constipation. Sigmoid diverticulosis without diverticulitis. APPENDIX: No significant abnormality. PERITONEUM: No free fluid. No free air. No fluid collection. LYMPH NODES: No significant adenopathy. AORTA and ARTERIES: No significant abnormality. IVC and VEINS: No significant abnormality. URINARY BLADDER: No significant abnormality. REPRODUCTIVE ORGANS: No significant abnormality. ADDITIONAL FINDINGS: None. SKELETAL SYSTEM: No significant abnormality. IMPRESSION: 1. No urinary tract calculi or hydronephrosis. 2. Sigmoid diverticulosis. 3. Moderate constipation Signer Name: Santiago Mckeon MD Signed: 01/30/2020 3:25 AM Workstation Name: [id number]
[2020-01-30 04:04] LABS: Bacteria,Urine 1+ /HPF (Negative); Bilirubin,Urine NEG (Negative); Blood,Urine NEG (Negative); Color,Urine Yellow (Yellow); Hyaline Casts,Urine 3 /LPF; Mucus,Urine 3+ /HPF; Protein,Urine <15 mg/dL mg/dL (Negative)
[2020-01-30] MEDS ORDERED: LIDOCAINE-MPF (1%) 10 MG/1 ML VIAL 5 ML INFILTRATI ONE (04:11)
== END 2020-01-30 04:40 | disposition home or self-care (01) ==
LOC: ED 19:28
DX: J01.10 Acute frontal sinusitis, unspecified (principal); J06.9 Acute upper respiratory infection, unspecified; N39.0 Urinary tract infection, site not specified; M62.830 Muscle spasm of back; R10.30 Lower abdominal pain, unspecified; I10 Essential (primary) hypertension; K21.9 Gastro-esophageal reflux disease without esophagitis; M19.91 Primary osteoarthritis, unspecified site; G43.909 Migraine, unspecified, not intractable, without status migrainosus; J45.909 Unspecified asthma, uncomplicated; Z98.890 Other specified postprocedural states; Z79.1 Long term (current) use of non-steroidal anti-inflammatories (NSAID); Z79.2 Long term (current) use of antibiotics; Z79.899 Other long term (current) drug therapy
CPT/HCPCS: 36415; 71046; 74176; 80053; 81001; 81025; 83690; 84484; 85025; 93005; 96372; 99284; J0696; J1885; J2405; Q0162

== ENCOUNTER 2020-06-03 05:14 | Emergency (ER) | payer MEDICARE, OTHER ==
[2020-06-03 05:57] VITALS: BP 138/84
[2020-06-03 06:40] LABS: Bacteria,Urine 2+ /HPF (Negative); Bilirubin,Urine NEG (Negative); Blood,Urine NEG (Negative); Color,Urine Amber (Yellow); Mucus,Urine FEW /HPF; Protein,Urine <15 mg/dL mg/dL (Negative)
[2020-06-03 07:13] LABS: Basophils % (Auto) 0.3 % (0.0-1.8); Eosinophils % (Auto) 0.1 % (0.0-4.3); Hematocrit 37.3 % (30.3-42.9); Hemoglobin 12.6 gm/dl (10.1-14.3); Lymphocytes # (Auto) 0.8 K/mm3 (1.2-5.4); Mean Corpuscular HGB Conc 34 % (30-34); Mean Corpuscular Volume 83 fl (79-97); Monocytes # (Auto) 0.7 K/mm3 (0.0-0.8); Platelet Count 281 K/mm3 (140-440); Red Blood Count 4.48 M/mm3 (3.65-5.03)
[2020-06-03 07:33] LABS: Alanine Aminotransferase 73 units/L (7-56); Albumin 4.1 g/dL (3.9-5); Blood Urea Nitrogen 12 mg/dL (7-17); Calcium 9.1 mg/dL (8.4-10.2); Hemolysis Index 2
[2020-06-03 07:35] LABS: BUN/Creatinine Ratio 20
--- NOTE | 2020-06-03 11:08 | Ultrasound Report ---
ULTRASOUND ABDOMEN, LIMITED (RIGHT UPPER QUADRANT) INDICATION / CLINICAL INFORMATION: ruq pain. COMPARISON: CT abdomen/pelvis dated 01/30/2020. FINDINGS: PANCREAS: Visualized portion shows no significant abnormality. LIVER: The liver measures 13.3 cm in length and is normal in echogenicity. GALLBLADDER: The gallbladder is contracted with multiple echogenic foci seen in the lumen. No gallbla dder wall thickening or pericholecystic edema is identified. No sonographic San's sign was elicite d. BILE DUCTS: No significant abnormality. Common bile duct measures 3 mm. RIGHT KIDNEY: The right kidney measures 9.4 cm in length and is normal in echogenicity. FREE FLUID: None. ADDITIONAL FINDINGS: None. IMPRESSION: 1. Contracted gallbladder containing multiple echogenic stones. No sonographic evidence of cholecysti tis. Signer Name: Kalia Brown MD Signed: 06/03/2020 11:04 AM Workstation Name: [id number]
--- NOTE | 2020-06-03 12:47 | Emergency Department Report ---
ED Abdominal Pain HPI - General Chief Complaint: Abdominal Pain Stated Complaint: CHEST ABDOMINAL BACK PAIN Time Seen by Provider: 06/03/20 09:16 Source: patient Mode of arrival: Stretcher Limitations: No Limitations - History of Present Illness Initial Comments: 29-year-old obese abdomen female resents emergency department complaining of abdominal pain associated with nausea that radiates to her flank and back that started early this morning and is still present now. She reports no vomiting, no hemoptysis no hematemesis no hematochezia, no fever, no chills, no sweats. She reports no palliative or provocative factors to her knowledge. Location: diffuse Radiation: R flank, back Severity: mild Quality: cramping, aching Consistency: constant Improves With: nothing Worsens With: nothing Associated Symptoms: denies: vomiting, diarrhea, chills, constipation, dysuria, hematemesis, melena, hematuria, anorexia, syncope - Related Data Home Medications Medication Instructions Recorded Confirmed Last Taken lisinopriL [Zestril TAB] 1 tab PO DAILY 11/25/18 01/30/19 11/24/18 Ferrous Fumarate (Nf) 1 tab PO DAILY 01/30/19 01/30/19 Unknown [Hemocyte(Nf)] Previous Rx's Medication Instructions Recorded Last Taken Type Albuterol Mdi (or & Nicu Only) 2 puff IH QID PRN #1 inhalation 09/30/18 11/12/18 Rx [ProAir HFA Inhaler] Ciprofloxacin [Ciprofloxacin ORAL 500 mg PO Q12H #70 ml 02/10/19 Unknown Rx LIQ] Ciprofloxacin HCl [Ciprofloxacin 500 mg PO Q12HR #14 tab 02/13/19 Unknown Rx TAB] Butalb/Acetamin/Caff 50-325-40 1 - 2 tab PO Q6HR PRN #15 tab 01/30/20 Unknown Rx [Fioricet 50-325-40] Fluconazole (Nf) [Diflucan TAB] 150 mg PO ONCE #1 tablet 01/30/20 Unknown Rx Ibuprofen [Motrin] 600 mg PO Q8H PRN #24 tablet 01/30/20 Unknown Rx Lisinopril/Hydrochlorothiazide 1 tab PO QDAY #30 tab 01/30/20 Unknown Rx [Zestoretic 20-12.5 mg] Ondansetron [Zofran Odt] 4 mg PO Q6HR PRN #15 tab.rapdis 01/30/20 Unknown Rx cephALEXin [Keflex] 500 mg PO Q6HR #40 capsule 01/30/20 Unknown Rx Acetaminophen [Tylenol] 650 mg PO Q8HR PRN #14 capsule 04/13/20 Unknown Rx Metoclopramide [Reglan] 10 mg PO Q8HR PRN #7 tab 04/13/20 Unknown Rx diphenhydrAMINE [Benadryl CAP] 25 mg PO Q8HR PRN #7 capsule 04/13/20 Unknown Rx Dicyclomine [Bentyl] 10 mg PO BID #14 capsule 06/03/20 Unknown Rx Ketorolac [Toradol] 10 mg PO Q6H PRN #14 tablet 06/03/20 Unknown Rx Allergies Allergy/AdvReac Type Severity Reaction Status Date / Time No Known Allergies Allergy Verified 01/30/19 17:01 ED Review of Systems ROS: Stated complaint: CHEST ABDOMINAL BACK PAIN Other details as noted in HPI Comment: All other systems reviewed and negative ED Past Medical Hx - Past Medical History Previous Medical History?: Yes Hx Hypertension: Yes Hx Heart Attack/AMI: No Hx Diabetes: (PT DENIES) Hx GERD: Yes Hx Liver Disease: No Hx Renal Disease: No Hx Arthritis: Yes Hx Headaches / Migraines: Yes (Migraines) Hx Seizures: No Hx Psychiatric Treatment: Yes (depression, bipolar, Anxiety) Hx Asthma: Yes Additional medical history: morbid obesity, abnormal uterine bleeding - Surgical History Past Surgical History?: Yes Additional Surgical History: gastric sleeve - Social History Smoking Status: Never Smoker - Medications Home Medications: Home Medications Medication Instructions Recorded Confirmed Last Taken Type Albuterol Mdi (or & Nicu Only) 2 puff IH QID PRN #1 inhalation 09/30/18 01/30/19 11/12/18 Rx [ProAir HFA Inhaler] lisinopriL [Zestril TAB] 1 tab PO DAILY 11/25/18 01/30/19 11/24/18 History Ferrous Fumarate (Nf) 1 tab PO DAILY 01/30/19 01/30/19 Unknown History [Hemocyte(Nf)] Ciprofloxacin [Ciprofloxacin ORAL 500 mg PO Q12H #70 ml 02/10/19 Unknown Rx LIQ] Ciprofloxacin HCl [Ciprofloxacin 500 mg PO Q12HR #14 tab 02/13/19 Unknown Rx TAB] Butalb/Acetamin/Caff 50-325-40 1 - 2 tab PO Q6HR PRN #15 tab 01/30/20 Unknown Rx [Fioricet 50-325-40] Fluconazole (Nf) [Diflucan TAB] 150 mg PO ONCE #1 tablet 01/30/20 Unknown Rx Ibuprofen [Motrin] 600 mg PO Q8H PRN #24 tablet 01/30/20 Unknown Rx Lisinopril/Hydrochlorothiazide 1 tab PO QDAY #30 tab 01/30/20 Unknown Rx [Zestoretic 20-12.5 mg] Ondansetron [Zofran Odt] 4 mg PO Q6HR PRN #15 tab.rapdis 01/30/20 Unknown Rx cephALEXin [Keflex] 500 mg PO Q6HR #40 capsule 01/30/20 Unknown Rx Acetaminophen [Tylenol] 650 mg PO Q8HR PRN #14 capsule 04/13/20 Unknown Rx Metoclopramide [Reglan] 10 mg PO Q8HR PRN #7 tab 04/13/20 Unknown Rx diphenhydrAMINE [Benadryl CAP] 25 mg PO Q8HR PRN #7 capsule 04/13/20 Unknown Rx Dicyclomine [Bentyl] 10 mg PO BID #14 capsule 06/03/20 Unknown Rx Ketorolac [Toradol] 10 mg PO Q6H PRN #14 tablet 06/03/20 Unknown Rx ED Physical Exam - General Limitations: No Limitations General appearance: alert, in no apparent distress - Head Head exam: Present: atraumatic, normocephalic - Eye Eye exam: Present: normal appearance, PERRL, EOMI Pupils: Present: normal accommodation - ENT ENT exam: Present: normal exam, normal orophraynx, mucous membranes moist, TM's normal bilaterally - Neck Neck exam: Present: normal inspection, full ROM - Respiratory Respiratory exam: Present: normal lung sounds bilaterally. Absent: respiratory distress, wheezes, chest wall tenderness, accessory muscle use, decreased breath sounds - Cardiovascular Cardiovascular Exam: Present: regular rate, normal rhythm. Absent: bradycardia, tachycardia, systolic murmur, diastolic murmur, rubs, gallop - GI/Abdominal GI/Abdominal exam: Present: soft, normal bowel sounds. Absent: tenderness, guarding, hyperactive bowel sounds, hypoactive bowel sounds - Extremities Exam Extremities exam: Present: normal inspection, full ROM, normal capillary refill - Back Exam Back exam: Present: normal inspection. Absent: CVA tenderness (R), CVA tenderne ss (L) - Neurological Exam Neurological exam: Present: alert, oriented X3, CN II-XII intact, normal gait - Psychiatric Psychiatric exam: Present: normal affect, normal mood. Absent: anxious, flat affect - Skin Skin exam: Present: warm, dry, intact, normal color. Absent: rash, cyanosis, diaphoretic ED Course Vital Signs 06/03/20 05:52 Temperature 97.6 F Pulse Rate 91 H Respiratory 18 Rate Blood Pressure 138/84 O2 Sat by Pulse 100 Oximetry ED Medical Decision Making - Lab Data Result diagrams: 06/03/20 06:42 06/03/20 06:42 - Medical Decision Making This patient presents with abdominal pain of unclear etiology. Their evaluation has not identified a emergent etiology for the abdominal pain. Specifically, given the very benign exam, normal laboratory studies, and lack of significant risk factors, I have a very low suspicion for appendicitis, ischemic bowel, bowel perforation, or any other life threatening disease. I have discussed with the patient the level of uncertainty with undifferentiated abdominal pain and clearly explained the need to follow-up as noted on the discharge instructions, or return to the Emergency Department immediately if the pain worsens, develops fever, persistent and uncontrollable vomiting, or for any new symptoms or concerns. I discussed with the patient that this presentation today for abdominal pain could represent a significant risk for an acute abdominal process. Although the tests in the ED were essentially normal, there is still a possibility of a process such as appendicitis, diverticulitis, cholecystitis, ulcer, early bowel obstruction, mesenteric ischemia, kidney stone, or even kidney infection which could subsequently cause disability or . The patient understands that they must return within 24 hours for a recheck or see their physician within 24 hours for re-exam due to the possibility of significant surgical or medical process. Critical care attestation.: If time is entered above; I have spent that time in minutes in the direct care of this critically ill patient, excluding procedure time. ED Disposition Clinical Impression: Gallstones without obstruction of gallbladder Disposition: DC-01 TO HOME OR SELFCARE Is pt being admited?: No Does the pt Need Aspirin: No Condition: Stable Instructions: Cholelithiasis, Biliary Colic, Adult, Abdominal Pain (ED) Prescriptions: Dicyclomine [Bentyl] 10 mg PO BID #14 capsule Ketorolac [Toradol] 10 mg PO Q6H PRN #14 tablet PRN Reason: Pain Referrals: [facility] [Provider Group] - 3-5 Days JULIA DUTTA MD [Primary Care Provider] - 3-5 Days Forms: Work/School Release Form(ED)
== END 2020-06-03 13:03 | disposition home or self-care (01) ==
LOC: ED 05:14
DX: K80.80 Other cholelithiasis without obstruction (principal); I10 Essential (primary) hypertension; K21.9 Gastro-esophageal reflux disease without esophagitis; M19.90 Unspecified osteoarthritis, unspecified site; G43.909 Migraine, unspecified, not intractable, without status migrainosus; F31.9 Bipolar disorder, unspecified; F41.9 Anxiety disorder, unspecified; J45.909 Unspecified asthma, uncomplicated; Z79.899 Other long term (current) drug therapy
CPT/HCPCS: 36415; 76705; 80053; 81001; 83690; 84703; 85025; 87086; 93005

== ENCOUNTER 2021-07-26 08:44 | Emergency (ER) | payer MEDICARE ==
[2021-07-26] MEDS ORDERED: SODIUM CHLORIDE 0.9% 1000 ML 1,000 ML IV ONE (11:19)
[2021-07-26] MEDS ORDERED: ACETAMINOPHEN 500 MG TAB PO ONE (11:20)
--- NOTE | 2021-07-26 11:27 | Emergency Department Report ---
HPI - General Chief Complaint: Pain General Time Seen by Provider: 07/26/21 10:48 - HPI HPI: 31-year-old female at approximately 8 weeks gestation based on LMP presents complaining of 3 days of bilateral shoulder, upper chest and trapezius pain as well as pleuritic chest pain. The patient states that 1 week ago she started having URI symptoms including congestion and mild cough. This resolved approximately 4 days ago but then she developed constant, sharp pain in her bilateral shoulders, upper chest and lower neck area. Yesterday she developed pain when she inhales which is the reason that she decided to come in today. She states that although she had a positive test at home she has not confirmed her with a [facility] but has an appointment scheduled. She does say that she had a negative COVID-19 test last week. She is vaccinated against COVID-19 but is not yet received a booster. She has not taken anything for symptoms because she was afraid to given that she is . There are no known aggravating or alleviating factors. She denies any recent surgery, prolonged immobilization, or travel. She denies any associated fever, headache, vision change, dyspnea at rest, abdominal pain, nausea/vomiting, back pain, focal weakness, sensory changes, dysuria, discharge, vaginal bleeding, or any other complaints. ED Past Medical Hx - Past Medical History Hx Hypertension: Yes Hx Heart Attack/AMI: No Hx Diabetes: (PT DENIES) Hx GERD: Yes Hx Liver Disease: No Hx Renal Disease: No Hx Arthritis: Yes Hx Headaches / Migraines: Yes (Migraines) Hx Seizures: No Hx Psychiatric Treatment: Yes (depression, bipolar, Anxiety) Hx Asthma: Yes Additional medical history: morbid obesity, abnormal uterine bleeding - Surgical History Additional Surgical History: gastric sleeve - Social History Smoking Status: Never Smoker - Medications Home Medications: Home Medications Medication Instructions Recorded Confirmed Last Taken Type Albuterol Mdi (or & Nicu Only) 2 puff IH QID PRN #1 inhalation 09/30/18 01/30/19 11/12/18 Rx [ProAir HFA Inhaler] lisinopriL [Zestril TAB] 1 tab PO DAILY 11/25/18 01/30/19 11/24/18 History Ferrous Fumarate (Nf) 1 tab PO DAILY 01/30/19 01/30/19 Unknown History [Hemocyte(Nf)] Ciprofloxacin [Ciprofloxacin ORAL 500 mg PO Q12H #70 ml 02/10/19 Unknown Rx LIQ] Ciprofloxacin HCl [Ciprofloxacin 500 mg PO Q12HR #14 tab 02/13/19 Unknown Rx TAB] Butalb/Acetamin/Caff 50-325-40 1 - 2 tab PO Q6HR PRN #15 tab 01/30/20 Unknown Rx [Fioricet 50-325-40] Fluconazole (Nf) [Diflucan TAB] 150 mg PO ONCE #1 tablet 01/30/20 Unknown Rx Ibuprofen [Motrin] 600 mg PO Q8H PRN #24 tablet 01/30/20 Unknown Rx Lisinopril/Hydrochlorothiazide 1 tab PO QDAY #30 tab 01/30/20 Unknown Rx [Zestoretic 20-12.5 mg] Ondansetron [Zofran Odt] 4 mg PO Q6HR PRN #15 tab.rapdis 01/30/20 Unknown Rx cephALEXin [Keflex] 500 mg PO Q6HR #40 capsule 01/30/20 Unknown Rx Acetaminophen [Tylenol] 650 mg PO Q8HR PRN #14 capsule 04/13/20 Unknown Rx Metoclopramide [Reglan] 10 mg PO Q8HR PRN #7 tab 04/13/20 Unknown Rx diphenhydrAMINE [Benadryl CAP] 25 mg PO Q8HR PRN #7 capsule 04/13/20 Unknown Rx Dicyclomine [Bentyl] 10 mg PO BID #14 capsule 06/03/20 Unknown Rx Ketorolac [Toradol] 10 mg PO Q6H PRN #14 tablet 06/03/20 Unknown Rx ED Review of Systems ROS: Stated complaint: BODY PAIN Other details as noted in HPI Comment: All other systems reviewed and negative Constitutional: denies: see HPI, fever Eyes: denies: eye pain, vision change ENT: congestion. denies: throat pain Respiratory: cough. denies: shortness of breath Cardiovascular: chest pain (pleuritic). denies: palpitations, syncope Gastrointestinal: denies: abdominal pain, nausea, vomiting, diarrhea Genitourinary: denies: dysuria, frequency Musculoskeletal: other (shoulder pain). denies: back pain, joint swelling Skin: denies: rash, lesions Neurological: denies: headache, weakness, numbness Physical Exam - Physical Exam Vital Signs: Vital Signs 07/26/21 10:06 Temperature 98.1 F Pulse Rate 74 Respiratory 17 Rate Blood Pressure 150/85 O2 Sat by Pulse 100 Oximetry Physical Exam: GENERAL: Well developed and well nourished. No acute distress HEAD: Normocephalic. No obvious signs of trauma. ENT: Moist mucous membranes. No meningismus. EYES: Extraocular movements are intact. Pupils are equal round and reactive to light bilaterally NECK: Supple. Full ROM is intact. Trachea is midline. LUNGS: Nonlabored breathing. Equal chest rise bilaterally. Clear to auscultation bilaterally. CARDIOVASCULAR: Regular rate and rhythm. No murmurs or rubs. VASCULAR: Cap refill < 2 seconds ABDOMEN: Abdomen is soft and nondistended. There is no significant tenderness, guarding or rebound. SKIN: Skin is warm and dry NEURO: Patient is awake, alert, and oriented. rubber goods tester water II-XII grossly intact. No focal deficits. Normal motor and sensory exam throughout. Normal speech. MUSCULOSKELETAL: No obvious deformities. No significant tenderness. Normal ROM throughout. BACK/SPINE: No midline tenderness or step-offs of the C/T/L spine. No costovertebral angle tenderness. ED Course Vital Signs 07/26/21 10:06 Temperature 98.1 F Pulse Rate 74 Respiratory 17 Rate Blood Pressure 150/85 O2 Sat by Pulse 100 Oximetry ED Medical Decision Making - Lab Data Result diagrams: 07/26/21 11:31 07/26/21 11:31 - EKG Data -: EKG Interpreted by Hi - EKG Data 07/26/21 16:03 Normal sinus rhythm. Normal axis. Normal intervals. No ectopy. No significant ST segment or T wave abnormalities. - Radiology Data Radiology results: report reviewed - Medical Decision Making 31-year-old female at approximately 8 weeks gestation based on LMP presents complaining of 1 week of URI symptoms with 3 days of bilateral shoulder pain and pleuritic chest pain today. She is afebrile and with normal vital signs. Physical examination is grossly within normal limits. She has no meningismus. She has a nonfocal neurologic exam. Lungs are clear to auscultation. No abdominal/pelvic/vaginal complaints. We will perform broad work-up with a full set of labs, chest x-ray, EKG, and CT angiogram of the chest to assess for evidence of pulmonary embolism given patient who is with pleuritic chest pain. We will give 1 L of IV fluids and Tylenol and reassess. Chest x-ray reveals no acute abnormalities. Labs have resulted and reveal no significant leukocytosis or anemia. Creatinine is within normal range and there are no significant electrolyte abnormalities. Troponin is negative. BNP is negative. hCG is positive at 94,550. CT angiogram of the chest reveals no evidence of pulmonary embolism and no acute abnormalities. Heart score is 1, repeat trop is negative. On reassessment at 4 PM, the patient reports that she feels better. She will be discharged home with instructions to follow-up closely with her [facility] and primary care doctor. All this was discussed with the patient expressed understanding and agreement with the plan of care. Critical care attestation.: If time is entered above; I have spent that time in minutes in the direct care of this critically ill patient, excluding procedure time. ED Disposition Clinical Impression: , Pleurisy, Upper respiratory infection, Myalgia Disposition: HOME / SELF CARE / HOMELESS Is pt being admited?: No Condition: Stable Instructions: COVID-19 Frequently Asked Questions, COVID-19, Upper Respiratory Infection, Adult, Musculoskeletal Pain, First Trimester of Additional Instructions: Please follow-up with your [facility] over the next several days. I would recommend self isolating at home until you are able to take a COVID-19 test which is negative. If positive you should isolate for at least 5 days from symptom onset. Return to the emergency department for any new emergent health concerns. Referrals: [facility] [Provider Group] - 3-5 Days HEART Score - HEART Score History: Slightly suspicious EKG: Normal Age: < 45 Risk factors: 1-2 risk factors Troponin: Troponin T < 0.010 ng/mL (0.00-0.029) 07/26/21 14:10 Troponin: < normal limit HEART Score: 1
[2021-07-26 11:45] LABS: Mean Corpuscular HGB Conc 30 % (30-34); Mean Corpuscular Volume 73 fl (79-97); Platelet Count 373 K/mm3 (140-440); Red Blood Count 4.92 M/mm3 (3.65-5.03)
[2021-07-26 11:46] LABS: Hematocrit 35.7 % (30.3-42.9); Hemoglobin 10.8 gm/dl (10.1-14.3); Red Cell Distribution Width 20.4 % (13.2-15.2)
[2021-07-26 11:55] LABS: INR 0.96 (0.87-1.13); Partial Thromboplastin Time 29.7 Sec. (24.2-36.6)
[2021-07-26 12:06] LABS: Erythrocyte Sedimentation Rate 19 mm/Hr (0-20)
[2021-07-26 12:08] LABS: Alanine Aminotransferase 11 units/L (7-56); Albumin 3.9 g/dL (3.9-5); Blood Urea Nitrogen 9 mg/dL (7-17); Hemolysis Index 7
[2021-07-26 12:19] LABS: Anisocytosis 1+; Basophils % (Manual) 0 % (0.0-1.8); Hypochromasia 1+; Large Platelets Few; Platelet Estimate Consistent w Auto; Total Cells Counted 100
[2021-07-26 12:20] LABS: BUN/Creatinine Ratio 23; Bilirubin,Direct < 0.2 mg/dL (0-0.2)
--- NOTE | 2021-07-26 13:31 | Electrocardiograph Report ---
[facility] Test Date: 2021-07-26 Test Time: 11:17:06 Pat Name: MARIEL WILEY Department: Room: Gender: F Superintendent Overhead Distribution: MANNY : 1990 Requested By: LAKIA SINGH Order Number: [id number] Reading MD: Ravi Maldonado Measurements Intervals Kake Rate: 67 P: 39 WY: 174 QRS: 33 QRSD: 82 T: 34 QT: 414 QTc: 438 Interpretive Statements Sinus rhythm No previous ECG available for comparison Electronically Signed On 07-26-2021 13:30:44 EST by Ravi Maldonado
--- NOTE | 2021-07-26 13:43 | XRay Report ---
CHEST 1 VIEW 07/26/2021 12:42 PM INDICATION / CLINICAL INFORMATION: cp. COMPARISON: 01/30/2020 FINDINGS: SUPPORT DEVICES: None. HEART / MEDIASTINUM: No significant abnormality. LUNGS / PLEURA: No significant pulmonary or pleural abnormality. No pneumothorax. ADDITIONAL FINDINGS: No significant additional findings. IMPRESSION: 1. No acute findings. Signer Name: Santiago Mckeon MD Signed: 07/26/2021 1:38 PM Workstation Name: [id number]
--- NOTE | 2021-07-26 15:01 | Cat Scan Report ---
CTA CHEST WITH CONTRAST INDICATION / CLINICAL INFORMATION: Pleuritic chest pain. . TECHNIQUE: Axial CT images were obtained through the chest after injection of 100 cc Omnipaque 350 IV contrast. 3 plane MIP and/or 3D reconstructions were produced. All CT scans at this location are per formed using CT dose reduction for ALARA by means of automated exposure control. COMPARISON: 02/10/19. FINDINGS: PULMONARY ARTERIES: Good opacification bilaterally without intraluminal filling defect to suggest acu te PTE. THORACIC AORTA: No significant abnormality. HEART: No significant abnormality. CORONARY ARTERY CALCIFICATION: None. MEDIASTINUM / VIOLET: Mild residual thymus. PLEURA: No pleural effusion. No pneumothorax. LUNGS: No acute air space or interstitial disease. ADDITIONAL FINDINGS: Aberrant right subclavian artery. UPPER ABDOMEN: No acute findings. SKELETAL STRUCTURES: No significant osseous abnormality. IMPRESSION: 1. No CT evidence for pulmonary embolism. 2. No acute findings. Signer Name: Franco Medrano MD Signed: 07/26/2021 2:57 PM Workstation Name: [id number]
[2021-07-26 16:24] VITALS: BP 121/71
== END 2021-07-26 16:24 | disposition home or self-care (01) ==
LOC: ED 08:44
DX: O99.511 Diseases of the respiratory system complicating pregnancy, first trimester (principal); J06.9 Acute upper respiratory infection, unspecified; Z3A.01 Less than 8 weeks gestation of pregnancy; M79.10 Myalgia, unspecified site; O26.891 Other specified pregnancy related conditions, first trimester
CPT/HCPCS: 36415; 71045; 71275; 80048; 80076; 83880; 84484; 84702; 85007; 85025; 85610; 85652; 85730; 86140; 93005; 96360; 99284; J7030; Q9967; Q0162